=== PATIENT | female | born 1985 | race American Indian/Alaskan Native ===

== ENCOUNTER 2017-06-15 16:36 | Emergency (ER) | payer OTHER ==
[2017-06-15 16:48] VITALS: RESP 18; O2SAT 100
--- NOTE | 2017-06-15 17:42 | C.PDOC ---
History Of Present Illness 31 y/o female c/o nasal congestion, cold, and chest pressure for the past week. Denies fever, chills, abdominal pain, N/V/D. Time Seen by Provider: 06/15/17 17:19 Chief Complaint (Nursing): ENT Problem History Per: Patient History/Exam Limitations: None Onset/Duration Of Symptoms: Days Current Symptoms Are (Timing): Still Present Severity: Mild Past Medical History Reviewed: Historical Data, Nursing Documentation, Vital Signs Vital Signs: Last Vital Signs Temp 98.5 F 06/15/17 17:43 Pulse 78 06/15/17 17:43 Resp 18 06/15/17 17:43 BP 114/68 06/15/17 17:43 Pulse Ox 100 06/15/17 17:43 Family History: States: Unknown Family Hx - Social History Hx Alcohol Use: Yes Hx Substance Use: No Review Of Systems Except As Marked, All Systems Reviewed And Found Negative. Constitutional: Negative for: Fever, Chills ENT: Positive for: Nose Congestion, Other (Cold) Cardiovascular: Positive for: Other (CHest pressure) Gastrointestinal: Negative for: Nausea, Vomiting, Abdominal Pain, Diarrhea Physical Exam - Physical Exam Appears: Non-toxic, No Acute Distress Skin: Warm, Dry Head: Atraumatic, Normacephalic Ear(s): Bilateral: Normal Oral Mucosa: Moist Cardiovascular: Rhythm Regular, No Murmur Respiratory: Normal Breath Sounds, No Wheezing Gastrointestinal/Abdominal: Soft, No Tenderness Neurological/Psych: Oriented x3 ED Course And Treatment O2 Sat by Pulse Oximetry: 100 (RA) Pulse Ox Interpretation: Normal Medical Decision Making Medical Decision Making: On reassessment, patient is resting comfortably, and is in no acute distress. Patient was instructed to follow up with physician/clinic in 1-2 days for further evaluation Disposition Counseled Patient/Family Regarding: Diagnosis, Need For Followup, Rx Given - Disposition Disposition: HOME/ ROUTINE Disposition Time: 17:39 Condition: STABLE Additional Instructions: Follow up with your doctor. Use nasal saline and irrigate your sinuses really well for the next 2 days. If no improvement start Augmentin. Prescriptions: Amoxicillin/Clavulanate [Augmentin 875 MG-125 MG] 1 tab PO BID #14 tab Instructions: Sinusitis (ED) Forms: [employer] (Yoruba) - Clinical Impression Clinical Impression: Sinusitis - Scribe Statement The provider has reviewed the documentation as recorded by the Selinibe Alannah mckeon All medical record entries made by the Selinibxiao were at my direction and personally dictated by me. I have reviewed the chart and agree that the record accurately reflects my personal performance of the history, physical exam, medical decision making, and the department course for this patient. I have also personally directed, reviewed, and agree with the discharge instructions and disposition.
[2017-06-15 17:44] VITALS: BP 114/68; PULSE 78; TEMP 98.5
== END 2017-06-15 17:47 | disposition home or self-care (01) ==
LOC: C.ER 16:36
DX: J32.9 Chronic sinusitis, unspecified (principal)